=== PATIENT | male | born 1975 | race Caucasian/White ===

== ENCOUNTER 2020-11-05 17:30 | Emergency (ER) | payer MEDICARE ==
[~2020-11-05] VITALS: Ht 182.9 cm; Wt 125.4 kg
[2020-11-05] MEDS ORDERED: KETOROLAC 15 MG/ML VIAL. IM ONE (18:15)
[2020-11-05] MEDS ORDERED: CYCLOBENZAPRINE 10 MG TABLET. PO ONE (18:15)
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
[2020-11-05 19:11] LABS: BASO # 0.1 x10^3/uL (0.0-0.2); BASO % 1 % (0-3); EOS # 0.3 x10^3/uL (0.0-0.7); EOS % 3 % (0-3); HEMATOCRIT 47.2 % (39.0-53.0); HEMOGLOBIN 15.7 g/dL (13.0-17.5); LYMPH # 2.3 x10^3/uL (1.0-4.8); LYMPH % 22 % (24-48); MEAN CORPUSCULAR HEMOGLOBIN 29 pg (25-35); MEAN CORPUSCULAR HGB CONC 33 g/dL (31-37); MEAN CORPUSCULAR VOLUME 86 fL (79-100); MONO # 0.6 x10^3/uL (0.0-1.1); MONO % 6 % (0-9); NEUT # 7.3 x10^3uL (1.8-7.7); NEUT % 69 % (31-73); PLATELET COUNT 279 x10^3/uL (140-400); RED BLOOD COUNT 5.51 x10^6/uL (4.30-5.70); RED CELL DISTRIBUTION WIDTH 14.1 % (11.5-14.5); WHITE BLOOD COUNT 10.6 x10^3/uL (4.0-11.0)
[2020-11-05 19:19] LABS: ALBUMIN 3.9 g/dL (3.4-5.0); ALBUMIN/GLOBULIN RATIO 1.1 (1.0-1.7); C REACTIVE PROTEIN 13.3 mg/L (0-3.3); CALCIUM 9.1 mg/dL (8.5-10.1); CREATININE 1.2 mg/dL (0.7-1.3); GFR 66.1; POTASSIUM 4.2 mmol/L (3.5-5.1); TOTAL BILIRUBIN 0.5 mg/dL (0.2-1.0); TOTAL PROTEIN 7.5 g/dL (6.4-8.2)
[2020-11-05 19:35] VITALS: BP 138/90
[2020-11-05 19:45] LABS: BILIRUBIN,URINE NEG (NEG); CLARITY,URINE CLEAR; COLOR,URINE YELLOW; GLUCOSE,URINE NEG (NEG)
[2020-11-05 19:46] LABS: BACTERIA,URINE 0 /HPF (0-FEW); NITRITE,URINE NEG (NEG); RBC,URINE RARE /HPF (0-2); SQUAMOUS EPITHELIAL CELL,UR OCC /LPF; UROBILINOGEN,URINE 0.2 mg/dL (0.2 mg/dL); WBC,URINE 0 /HPF (0-4)
== END 2020-11-05 19:48 | disposition left against medical advice (07) ==
LOC: ER 17:30
DX: M54.42 Lumbago with sciatica, left side (principal); G89.29 Other chronic pain
CPT/HCPCS: 36415; 80053; 81001; 85025; 86140; 96372; 99283; J1885

== ENCOUNTER 2021-01-24 18:50 | Emergency (ER) | payer MEDICARE ==
[~2021-01-24] VITALS: Ht 185.4 cm; Wt 130.4 kg
[2021-01-24 19:20] VITALS: BP 117/84
[2021-01-24] MEDS ORDERED: CEPH500C PO (19:38)
--- NOTE | 2021-01-24 19:39 | PHYS DOC ---
Past History Past Medical History: Other Additional Past Medical Histor: Chronic back pain Past Surgical History: Other Additional Past Surgical Histo: lower back Alcohol Use: None Adult General Chief Complaint Chief Complaint: INSECT BITE HPI HPI Patient is an otherwise healthy 45-year-old male, up-to-date on tetanus who was stung by wasp on the back left calf 2 weeks ago. States that there is an area of redness tear that he is concerned might be infected. States he has been stung many times before. Denies any recent fevers, chest pain, shortness of breath, wheezing, abdominal pain, nausea, vomiting, diarrhea. States he is eating and drinking normally for him. Review of Systems Review of Systems Review of systems otherwise unremarkable except noted in HPI Allergies Allergies Allergies Coded Allergies Type Severity Reaction Last Updated Verified No Known Drug Allergies 11/05/20 No Physical Exam Physical Exam Constitutional: Well developed, well nourished, no acute distress, non-toxic appearance. [] HENT: Normocephalic, atraumatic, bilateral external ears normal, oropharynx moist, no oral exudates, nose normal. [] Cardiovascular:Heart rate regular rhythm, no murmur [] Lungs & Thorax: Bilateral breath sounds clear to auscultation [] Abdomen: soft, no tenderness, no masses, no pulsatile masses. [] Skin: Warm, dry, no erythema, no rash. [] Extremities: No tenderness, no cyanosis, no clubbing, ROM intact, no edema, has a half a centimeter circumferential erythematous lesion on the back of the lower left calf with some mild redness and warmth. [] Neurologic: Alert and oriented X 3, normal motor function, normal sensory function, no focal deficits noted. [] Psychologic: Affect normal, judgement normal, mood normal. [] EKG EKG [] Radiology/Procedures Radiology/Procedures [] Heart Score C/O Chest Pain: No Risk Factors: Risk Factors: DM, Current or recent (<one month) smoker, HTN, HLP, family history of CAD, obesity. Risk Scores: Risk Factors: DM, Current or recent (<one month) smoker, HTN, HLP, family history of CAD, obesity. Course & Med Decision Making Course & Med Decision Making Patient is a 45-year-old male who presents with an insect bite Vital signs not concerning. Physical exam noted above. Started on antibiotics for mild superficial cellulitis. Discussed management for symptoms at home. Advised to follow-up as soon as he can with his primary care physician to set up a follow-up visit. Gave return precautions to the ED. Patient grateful, verbalized understanding and agreed with plan of discharge. [] Dragon Disclaimer Dragon Disclaimer This electronic medical record was generated, in whole or in part, using a voice recognition dictation system. Departure Departure: Impression: Primary Impression: Bee sting Disposition: HOME / SELF CARE / HOMELESS Condition: GOOD Referrals: JOSH GAXIOLA MD (PCP) Patient Instructions: Insect Bite Additional Instructions: Thank you for coming into the emergency department tonight and allowing us to take care of you. Please keep that area clean, dry and bandaged. Please take your antibiotics as prescribed. You can use Tylenol and ibuprofen as needed as well as ice. Please call your primary care physician as soon as you can to set up a follow-up appointment for wound reevaluation. Please come back to the ED with new or concerning symptoms as discussed. Scripts Cephalexin (KEFLEX) 500 Mg Capsule 1 CAP PO TID for cellulitis for 7 Days, #21 CAP Prov: ALLY PERSON MD 01/24/21 ALLY PERSON MD Jan 24, 2021 19:39
[2021-01-24] MEDS ORDERED: CEPHALEXIN 250 MG CAPSULE PO ONE (19:45)
== END 2021-01-24 19:45 | disposition home or self-care (01) ==
LOC: ER 18:50
DX: T63.441A Toxic effect of venom of bees, accidental (unintentional), initial encounter (principal); G89.29 Other chronic pain; Z59.0 Homelessness; Y92.89 Other specified places as the place of occurrence of the external cause
CPT/HCPCS: 99283

== ENCOUNTER → 2021-02-20 | Outpatient (CLI) | payer MEDICARE ==
[2021-01-24 19:20] VITALS: BP 117/84
[~2021-02-20] MED LIST: CEPH500C PO
--- NOTE | 2021-02-20 16:56 | RAD ---
EXAM: LUMBAR SPINE 3 VIEWS. HISTORY: Low back pain. COMPARISON: None. FINDINGS: Alignment is maintained. Vertebral body heights are maintained, and no fractures are identi fied. Degenerative disc disease is mild at L5-S1. IMPRESSION: 1. Mild degenerative disc disease at L5-S1. Electronically signed by: Yoav Walker MD (02/20/2021 4:54 PM) [id number]
== END ==
LOC: RAD 13:58
PROVIDERS: ATTEND Family Medicine
DX: S39.012A Strain of muscle, fascia and tendon of lower back, initial encounter (principal); M51.37 Other intervertebral disc degeneration, lumbosacral region; M54.2 Cervicalgia; X58.XXXA Exposure to other specified factors, initial encounter; Y93.89 Activity, other specified; Y92.89 Other specified places as the place of occurrence of the external cause; Y99.8 Other external cause status
CPT/HCPCS: 72040; 72100